=== PATIENT | male | born 1995 | race Caucasian/White ===

== ENCOUNTER 2018-02-03 14:07 | Emergency (ER) | payer OTHER ==
[~2018-02-03] VITALS: Ht 180.3 cm; Wt 108.6 kg
[2018-02-03 14:15] VITALS: BP 149/81
[2018-02-03] MEDS ORDERED: KETOROLAC 30 MG/1 ML IM ONE (14:30)
[2018-02-03] MEDS ORDERED: KETOROLAC 30 MG/1 ML ONE (14:52)
== END 2018-02-03 15:01 | disposition home or self-care (01) ==
LOC: ED 14:55
DX: S39.012A Strain of muscle, fascia and tendon of lower back, initial encounter (principal); F17.210 Nicotine dependence, cigarettes, uncomplicated; X50.1XXA Overexertion from prolonged static or awkward postures, initial encounter; Y93.89 Activity, other specified; Y99.8 Other external cause status; Y92.89 Other specified places as the place of occurrence of the external cause
CPT/HCPCS: 96372; 99283; J1885